=== PATIENT | female | born 1950 | race Caucasian/White ===

== ENCOUNTER 2016-12-26 22:01 | Emergency (ER) | payer BC, OTHER ==
[~2016-12-26] VITALS: Ht 177.8 cm; Wt 85.4 kg
[2016-12-26 22:02] VITALS: BP 143/77; PULSE 91; TEMP 36.6; O2SAT 98; Ht 177.8 cm; Wt 85.4 kg
[2016-12-26] MEDS ORDERED: PHENAZOPYRIDINE HOME PACK 200 MG VIAL PO ONE (22:15)
[2016-12-26] MEDS ORDERED: SEPTRA DS HOME PACK 1 EA VIAL PO ONE (22:15)
--- NOTE | 2016-12-26 22:19 | EMERGENCY ROOM VISIT NOTE ---
History First contact with patient: 22:05 Chief Complaint: URINARY SYMPTOMS Stated Complaint: UTI History of Present Illness The patient is a 66 year old female who presents to the Emergency Room with complaints of urinary free to see urgency and dysuria for the past day who a few weeks ago and was given Macrobid for UTI by the urgent care. Patient denies chest pain, dyspnea, fever, chills, nausea, vomiting, diarrhea, back pain , flank pain, abdominal pain. She is tolerating by mouth fluids and food. Review of Systems See HPI for pertinent positives & negatives. A total of 10 systems reviewed and were otherwise negative. Past Medical/Surgical History Medical Problems: (1) Kidney stone (2) Menopause Surgical Problems: (1) H/O dilation and curettage Family History Cancer Heart disease Social History Smoking Status: Never Smoker Smokeless Tobacco Use: No Alcohol Use: occasionally Drug Use: none Marital Status: Housing Status: lives with family Current/Historical Medications No Active Prescriptions or Reported Meds Allergies Coded Allergies: Adhesives (Unverified Allergy, Intermediate, RASH, 03/18/16) Bacitracin (Unverified Allergy, Unknown, ., 03/18/16) Neomycin (Unverified Allergy, Unknown, ., 03/18/16) Polymyxin B (Unverified Allergy, Unknown, ., 03/18/16) Physical Exam Vital Signs Date Time Temp Pulse Resp B/P Pulse Ox O2 Delivery O2 Flow Rate FiO2 12/26/16 22:02 36.6 91 18 143/77 98 Room Air Physical Exam VITALS: Vitals are noted on the nurse's note and reviewed by myself. Vital signs stable. GENERAL: Pleasant female, in no acute distress, nondiaphoretic, well-developed well-nourished. SKIN: Capillary reflex less than 2 seconds. HEENT: Normocephalic. PERRLA. EOMI. Nares patent. Mucous membranes moist. Neck is supple without nuchal rigidity. HEART: Regular rate and rhythm without murmurs gallops or rubs. LUNGS: Clear to auscultation bilaterally without wheezes, rales or rhonchi. No retractions or accessory muscle use. ABDOMEN: Positive bowel sounds x 4. Normal tympanic percussion. Soft, nontender, without masses or organomegaly. Nguyen sign negative. No guarding or rebound tenderness. No CVA tenderness MUSCULOSKELETAL: No gross musculoskeletal defects. NEURO: Patient was alert and oriented to person place and time. Normal sensation to light and sharp touch. No focal neurological deficits. Medical Decision & Procedures ED Course Prior records reviewed and summarized as above. Triage Nursing notes reviewed. The patient's history was concerning for urinary symptoms. Differential diagnosis: Etiologies such as UTI, cystitis, kidney stone, as well as others were entertained.. Physical examination: The physical examination was consistent with UTI ER treatment provided: Bactrim, Pyridium On reassessment the patient felt better. Diagnostics interpreted by me: The labs revealed dip was consistent with infection and sent for culture This appears to be UTI. Patient no CVA tenderness. She is afebrile and nontoxic. She is well-appearing. She was advised drink plenty of fluids and take medications as directed. She is advised follow-up family care in a few days or here in the ER sooner for fevers, back pain, vomiting, worsening signs or symptoms or as needed. By the evaluation outlined above emergent etiologies such as pyelonephritis, stone, as well as others were deemed relatively unlikely. The pt informed about the findings as listed above. All questions were answered and pleased with the treatment. Return instructions were outlined and the patient was discharged in stable condition. Outpatient prescription management: Bactrim, Pyridium Referral: The patient was referred back to primary care physician for follow-up in 2 to 3 days for a recheck of the current condition. Case reviewed with my attending. Medical Decision as above Impression Primary Impression: Urinary tract infection Departure Information Dispostion Home / Self-Care Condition GOOD Prescriptions No Active Prescriptions or Reported Meds Referrals Mike Culver M.D. (PCP) Patient Instructions My [facility] Additional Instructions Trimethoprim-Sulfamethoxazole(Bactrim DS): Take one pill twice daily for 7 days for your urine infection. All antibiotics can cause diarrhea. If this occurs and you feel worse or it does not resolve in 1-2 days follow up with your doctor or return to the Emergency Department as this could be signs of serious underlying problems. Any medication can cause an allergic reaction, stop the pills immediately and return to the ER for rash, hives, breathing difficulties, or swelling. Pyridium 200mg: Take one pill three times daily as needed for urinary discomfort. This medication will turn your urine orange. This is normal and nothing to be concerned about. Ibuprofen(Motrin, Advil) may be used for fever or pain. Use 600mg every six hours as needed. Take with food. Avoid using more than 2400mg in a 24 hour period. Do not use 2400mg per day for more than three consecutive days without physician direction. Prolonged inappropriate use can lead to stomach upset or ulcers. (AND/OR) Acetaminophen(Tylenol) may be used for fever or pain. Use 1000mg every six hours as needed. Avoid using more than 3000mg in a 24 hour period. Rest and drink plenty of fluids as tolerated. Continue current medications. Return to the ER immediately for worsening or persistent abdominal/back pain, vomiting, fevers, worsening of your condition, or as needed. Follow up with your primary physician within 2-3 days for a recheck of the current condition. Problem Qualifiers Primary Impression: Urinary tract infection Urinary tract infection type: acute cystitis Hematuria presence: with hematuria Qualified Codes: N30.01 - Acute cystitis with hematuria
--- NOTE | 2016-12-26 22:19 | EMERGENCY ROOM VISIT NOTE ---
ED Visit Note First contact with patient: 22:18 This Patient was discussed with the physician assistant terminal manager, KAROLYN Olsen. The pertinent historical and physical exam findings were confirmed. I agree with the studies ordered and with the interpretations of these studies. I agree with the disposition and care plan.
== END 2016-12-26 22:30 | disposition home or self-care (01) ==
LOC: C.EDB 22:02
DX: N39.0 Urinary tract infection, site not specified (principal); Z87.442 Personal history of urinary calculi; Z88.8 Allergy status to other drugs, medicaments and biological substances; Z91.09 Other allergy status, other than to drugs and biological substances; Z80.9 Family history of malignant neoplasm, unspecified; Z82.49 Family history of ischemic heart disease and other diseases of the circulatory system

== ENCOUNTER → 2017-02-24 | Outpatient (CLI) | payer OTHER | END | disposition home or self-care (01) | LOC: C.PATHSPEC 16:53 | PROVIDERS: ATTEND Plastic Surgery | DX: C44.622 Squamous cell carcinoma of skin of right upper limb, including shoulder (principal); C44.722 Squamous cell carcinoma of skin of right lower limb, including hip ==

== ENCOUNTER → 2017-12-25 | Outpatient (CLI) | payer OTHER ==
[~2017-12-25] MED LIST: OPTIRAY 320 IV PRN; PANT40TA PO
--- NOTE | 2017-12-25 14:05 | DIAGNOSTIC IMAGING REPORT ---
ABD WITH IV AND ORAL CONT (CT) CLINICAL HISTORY: 67 years-old Female presenting with MID ESOPHAGEAL DYSPHAGIA, EXTRINSIC GASTRIC BODY, abnormally EGD. TECHNIQUE: Multidetector CT of the abdomen was performed after the administration of oral and intravenous contrast. IV contrast: 94 mL of Optiray 320. A dose lowering technique was used consistent with the principles of ALARA (as low as reasonably achievable). COMPARISON: 04/01/2012. CT DOSE (mGy.cm): The estimated cumulative dose is 631.54 mGycm. FINDINGS: [employer] topogram: Unremarkable. Lung bases: Trace emphysematous changes. Solid subpleural 5 mm lesion in the right lower lobe (series 3 image 20), likely present on prior exam. Normal heart size. No pericardial or pleural effusion. Liver: The liver contour is expanded by multiple lobular hypodense well-defined lesions compatible with hepatic cysts. Some demonstrate thin mural calcifications. No hyperdensity to suggest hemorrhage. Tubular cystic change (series 3 image 95), may represent peribiliary cysts. Vasculature patent though displaced by the large cysts in the left lobe. Biliary: No intrahepatic or extrahepatic biliary ductal dilatation. Normal gallbladder. Pancreas: Normal. Spleen: Normal. Adrenal glands: Nodular thickening of the left adrenal gland, unchanged. Right adrenal gland normal. Kidneys and ureters: Multiple well-defined hypodensities in the kidneys likely cysts. No nephrolithiasis. No hydronephrosis. Ureters normal in the visualized portion. Bowel: Normal. No bowel obstruction. Trace hiatal hernia. Peritoneal cavity: No free fluid or intraperitoneal gas. Lymph nodes: No enlarged lymph nodes in the abdomen. Vasculature: Atherosclerosis of the normal caliber abdominal aorta. IVC patent. Abdominal wall: Diastasis of the rectus abdominis. Musculoskeletal: Degenerative changes of the spine. IMPRESSION: 1. Trace hiatal hernia. Otherwise no CT abnormality of the bowel in the abdomen. 2. No acute intra-abdominal pathology. No evidence of perforation. 3. Polycystic liver disease. Electronically signed by: Kyaw Jordan M.D. 12/25/2017 2:04 PM Dictated Date/Time: 12/25/2017 1:54 PM
== END | disposition home or self-care (01) ==
LOC: C.CTS 13:17
PROVIDERS: ATTEND Internal Medicine Gastroenterology
DX: R93.3 Abnormal findings on diagnostic imaging of other parts of digestive tract (principal); R13.10 Dysphagia, unspecified; Q44.6 Cystic disease of liver